=== PATIENT | female | born 1990 | race African-American/Black ===

== ENCOUNTER 2019-01-03 16:11 | Emergency (ER) | payer OTHER ==
[2019-01-03 17:42] LABS: URINE BLOOD (Dip) POC 2+ (NEGATIVE); URINE GLUCOSE (Dip) POC Negative (NEGATIVE); URINE KETONES (Dip) POC Negative (NEGATIVE); URINE LEUKOCYTE EST (Dip) POC 3+ (NEGATIVE); URINE NITRITE (Dip) POC Negative (NEGATIVE); URINE TOTAL PROTEIN POC 2+ (NEGATIVE)
[2019-01-03 17:42] LABS: URINE PH (Dip) POC 7.5 (5.0-8.5)
[2019-01-03 17:50] LABS: URINE BLOOD (Dip) POC 3+ (NEGATIVE); URINE GLUCOSE (Dip) POC Negative (NEGATIVE); URINE KETONES (Dip) POC Negative (NEGATIVE); URINE LEUKOCYTE EST (Dip) POC 3+ (NEGATIVE); URINE NITRITE (Dip) POC Negative (NEGATIVE); URINE TOTAL PROTEIN POC 2+ (NEGATIVE)
[2019-01-03 17:50] LABS: URINE PH (Dip) POC 7.5 (5.0-8.5)
[2019-01-03] MEDS: CEPHALEXIN 500 MG CAP PO (18:12)
[2019-01-03] MEDS: PHENAZOPYRIDINE 100 MG TAB PO (18:12)
== END 2019-01-03 18:16 | disposition home or self-care (01) ==
LOC: FTE 16:11
DX: N39.0 Urinary tract infection, site not specified (principal)
CPT/HCPCS: 81003; 81025; 99283-25